=== PATIENT | female | born 1970 | race Caucasian/White ===

== ENCOUNTER 2021-06-03 06:51 | Day surgery (SDC) | payer BC ==
[2021-05-30 12:00] VITALS: BMI 39.8
[~2021-06-03 06:51] MED LIST: LACTATED RINGERS 1,000 ML IV SCH
--- NOTE | 2021-06-03 07:10 | P.GSHP ---
History of Present Illness H&P Date: 06/03/21 CHIEF COMPLAINT: GERD HISTORY OF PRESENT ILLNESS: The patient is a 50-year-old female who presents reports gastroesophageal reflux disease. Upper endoscopy was offered for further evaluation and management. PAST MEDICAL HISTORY: Please see list. PAST SURGICAL HISTORY: Please see list. MEDICATIONS: Please see list. ALLERGIES: Please see list. SOCIAL HISTORY: No illicit drug use FAMILY HISTORY: No reports of Crohn disease or ulcerative colitis. REVIEW OF ORGAN SYSTEMS: CONSTITUTIONAL: No reports of fevers or chills. GI: Denies any blood in stools or constipation. PHYSICAL EXAM: VITAL SIGNS: Stable GENERAL: Well-developed and pleasant in no acute distress. HEENT: No scleral icterus. Extraocular movements grossly intact. Moist buccal mucosa. NECK: Supple without lymphadenopathy. CHEST: Unlabored respirations. Equal bilateral excursions. CARDIOVASCULAR: Regular rate and rhythm. Distal 2+ pulses. ABDOMEN: Soft, nondistended. MUSCULOSKELETAL: No clubbing, cyanosis, or edema. ASSESSMENT: 1. Gastroesophageal reflux disease PLAN: 1. Recommend proceeding with an upper endoscopy Past Medical History Past Medical History: Thyroid Disorder Additional Past Medical History / Comment(s): hx migraines, "pre cancer cells on cervix" History of Any Multi-Drug Resistant Organisms: None Reported Past Surgical History: Breast Surgery, Section, Cholecystectomy, Hysterectomy Additional Past Surgical History / Comment(s): left breast biopsy, colonoscopy Past Anesthesia/Blood Transfusion Reactions: No Reported Reaction Smoking Status: Never smoker - Past Family History Mother Family Medical History: No Reported History Medications and Allergies Home Medications Medication Instructions Recorded Confirmed Type Ergocalciferol [Vitamin D2 (1250 1,250 mcg PO SUTH 03/13/21 05/30/21 History Mcg = 05805 Iu)] Fluticasone Propionate [Flovent 50 mcg INHALATION DAILY 03/13/21 05/30/21 History Diskus] Loratadine [Claritin] 10 mg PO DAILY 03/13/21 05/30/21 History valACYclovir HCL 1,000 mg PO DAILY PRN 03/13/21 05/30/21 History Vitamin A Tab 3,000 mg PO DAILY 05/30/21 05/30/21 History Allergies Allergy/AdvReac Type Severity Reaction Status Date / Time No Known Allergies Allergy Verified 05/30/21 11:49
[2021-06-03] MEDS ORDERED: LACTATED RINGERS 1,000 ML IV ONE (07:15)
[2021-06-03 07:16] VITALS: TEMP 97.8
[2021-06-03] MEDS ORDERED: PROPOFOL 10 MG/ML 20 ML VIAL IV ONE (07:44)
[2021-06-03] MEDS ORDERED: LIDOCAINE 1% INJ 10MG/ML (20 ML MDV) ONE (07:44)
--- NOTE | 2021-06-03 08:09 | P.PCN ---
Date of Procedure: 06/03/21 Description of Procedure: PREOPERATIVE DIAGNOSIS: Gastroesophageal reflux disease. Morbid obesity. POSTOPERATIVE DIAGNOSIS: Morbid obesity. Gastritis. Gastroesophageal reflux disease. OPERATION: Esophagogastroduodenoscopy with biopsies along antrum and duodenum SURGEON: Carol Rosado MD ANESTHESIA: MAC. INDICATIONS: The patient is a 50-year-old female who presents with a history of reflux disease. Benefits and risks of the procedure were described. Informed consent was obtained. DESCRIPTION: The patient was brought into the endoscopy suite and laid in the left lateral decubitus position. An Olympus gastroscope was passed along the posterior oropharynx down to the distal esophagus where the squamocolumnar junction was encountered at 36 cm from the incisors. The stomach was entered and with retained food. Additional findings are listed below. Biopsies with cold forceps were obtained of the antrum. The first through third portion of the duodenum was examined and cold biopsy forceps obtained. Retroflexion of the scope confirmed Hill grade 2 lower esophageal valve. The squamocolumnar junction demonstrated LA grade B erosive esophagitis. The stomach was desufflated. The patient tolerated the procedure well. FINDINGS: Squamocolumnar junction 36 cm from the incisors. Diaphragmatic hiatus at 36 cm. Hill grade 2 lower esophageal valve. LA grade B erosive esophagitis. Cold biopsy forceps obtained of the duodenum Chronic gastritis RECOMMENDATIONS: Upper endoscopy as needed. Plan - Discharge Summary New Discharge Prescriptions: Continue Ergocalciferol [Vitamin D2 (1250 Mcg = 21641 Iu)] 1,250 mcg PO SUTH Loratadine [Claritin] 10 mg PO DAILY valACYclovir HCL 1,000 mg PO DAILY PRN PRN Reason: Rash Vitamin A Tab 3,000 mg PO DAILY Fluticasone Propionate [Flovent Diskus] 50 mcg INHALATION DAILY Discharge Medication List Ergocalciferol [Vitamin D2 (1250 Mcg = 80794 Iu)] 1,250 mcg PO SUTH 03/13/21 [History] Fluticasone Propionate [Flovent Diskus] 50 mcg INHALATION DAILY 03/13/21 [History] Loratadine [Claritin] 10 mg PO DAILY 03/13/21 [History] valACYclovir HCL 1,000 mg PO DAILY PRN 03/13/21 [History] Vitamin A Tab 3,000 mg PO DAILY 05/30/21 [History] Follow up Appointment(s)/Referral(s): [facility] [NON-STAFF] - 06/19/21 Patient Instructions/Handouts: Gastroesophageal Reflux Disease (DC) Discharge Disposition: HOME SELF-CARE
[2021-06-03 08:29] VITALS: BP 134/93; PULSE 71; RESP 18
== END 2021-06-03 08:46 | disposition home or self-care (01) ==
LOC: ORWHC2ENDO 06:51
PROVIDERS: ATTEND Surgery Plastic and Reconstructive Surgery
DX: K29.50 Unspecified chronic gastritis without bleeding (principal); K21.9 Gastro-esophageal reflux disease without esophagitis; K22.10 Ulcer of esophagus without bleeding; E66.01 Morbid (severe) obesity due to excess calories; Z68.41 Body mass index [BMI] 40.0-44.9, adult; E07.9 Disorder of thyroid, unspecified; G43.909 Migraine, unspecified, not intractable, without status migrainosus; Z98.891 History of uterine scar from previous surgery; Z90.49 Acquired absence of other specified parts of digestive tract; Z90.710 Acquired absence of both cervix and uterus; Z98.890 Other specified postprocedural states; Z79.899 Other long term (current) drug therapy
CPT/HCPCS: 88305; 43239; J2001; J2704

== ENCOUNTER → 2021-07-15 | Outpatient (CLI) | payer BC ==
[2021-07-15 12:54] VITALS: BMI 40.0
== END ==
LOC: BARWHC3 08:30
PROVIDERS: ATTEND Surgery Plastic and Reconstructive Surgery
DX: E66.01 Morbid (severe) obesity due to excess calories (principal); Z71.3 Dietary counseling and surveillance; Z68.41 Body mass index [BMI] 40.0-44.9, adult
CPT/HCPCS: 97804

== ENCOUNTER → 2021-11-22 | Outpatient (CLI) | payer BC ==
[2021-11-22 08:16] LABS: Partial Thromboplastin Time 24.9 sec (22.0-30.0); Prothrombin Time 10.5 sec (9.0-12.0)
[2021-11-22 11:19] LABS: % Iron Saturation 10.54 (12.00-45.00); ALT 44 U/L (8-44); AST 31 U/L (13-35); African American GFR (CKD) 118.4 (60.0-200.0); Albumin 4.6 g/dL (3.8-4.9); Albumin/Globulin Ratio 1.55 (1.60-3.17); Alkaline Phosphatase 129 U/L (41-126); BUN/Creat Ratio 26.55 Ratio (12.00-20.00); Blood Urea Nitrogen 17.6 mg/dL (9.0-27.0); Calcium 9.7 mg/dL (8.7-10.3); Carbon Dioxide 20.7 mmol/L (20.0-27.5); Chloride 100 mmol/L (96-109); Glucose 88 mg/dL (70-110); Iron 43 ug/dL (50-170); Magnesium 2.4 mg/dL (1.5-2.4); Non-African American GFR(CKD) 102.1 (60.0-200.0); Phosphorus 3.2 mg/dL (2.4-5.1); Potassium 3.9 mmol/L (3.5-5.5); Sodium 135 mmol/L (135-145); Total Iron Binding Capacity 409 ug/dL (228-460); Total Protein 7.6 g/dL (6.2-8.2)
[2021-11-22 11:37] LABS: HCT 43.3 % (37.2-46.3); HGB 14.3 g/dL (12.0-15.0); MCH 28.3 pg (27.0-32.0); MCV 85.7 fL (80.0-97.0); Mean Platelet Volume 11.2 fL (9.5-12.2); NRBC Per 100 WBC 0 /100 WBCS (0.0-0.0); Platelet Count 346 X 10*3/uL (140-440); RBC 5.05 X 10*6/uL (4.10-5.20); RDW 12.8 % (11.5-14.5)
[2021-11-22 12:16] LABS: Chol/HDL Ratio 6.41 Ratio; LDL Cholesterol,Calculated 163.7 mg/dL (0.0-131.0); Prealbumin 21.5 mg/dL (18.0-42.0)
== END | disposition home or self-care (01) ==
LOC: LABWHC1 07:22
PROVIDERS: ATTEND Surgery Plastic and Reconstructive Surgery
DX: D50.8 Other iron deficiency anemias (principal); K91.2 Postsurgical malabsorption, not elsewhere classified; E44.0 Moderate protein-calorie malnutrition; E66.01 Morbid (severe) obesity due to excess calories; E45 Retarded development following protein-calorie malnutrition; K74.1 Hepatic sclerosis; N19 Unspecified kidney failure
CPT/HCPCS: 36415; 80053; 80061; 82306; 82525; 82607; 82728; 82746; 83036; 83540; 83550; 83735; 83970; 84100; 84134; 84255; 84425; 84443; 84590; 84630; 85027; 85610; 85730

== ENCOUNTER 2021-12-09 08:00 | Inpatient (IN) | payer BC ==
[~2021-12-09 08:00] MED LIST changes: +CHLORHEXIDINE GLUCONATE 15 ML CUP MUCOUS MEM PRN; +ENOXAPARIN 40 MG/0.4 ML SYRINGE SQ PRN; -LACTATED RINGERS 1,000 ML IV SCH; +PANTOPRAZOLE 40 MG/10 ML VIAL IVP PRN
[2021-12-09] MEDS ORDERED: SCOPOLAMINE 1 MG/72 HR PATCH TRANSDERM STA (08:23)
[2021-12-09] MEDS ORDERED: ACETAMINOPHEN TAB 500 MG TAB PO PRN (08:23)
[2021-12-09] MEDS ORDERED: GABAPENTIN 300 MG CAP PO PRN (08:23)
--- NOTE | 2021-12-09 08:37 | P.GSHP ---
History of Present Illness H&P Date: 12/09/21 CHIEF COMPLAINT: Morbid obesity HISTORY OF PRESENT ILLNESS: Mamie Kebede is a 51-year-old female who comes with lifelong morbid obesity. As a result of her morbid obesity, she has developed osteoarthritis of the knees, lower back and hips. She is looking into the sleeve gastrectomy. At height of 5 feet 3 inches, her ideal body weight is 140 pounds. Her highest weight is 235 pounds, body mass index of 41.7. She comes in 232 pounds. Her body mass index is 41.3. She is 91 pounds overweight. PAST MEDICAL HISTORY: 1. Morbid obesity due to excess calories 2. Body mass index of 41.7, initial 3. Osteoarthritis of the knees. 4. Osteoarthritis of the lower back. 5. Thyroid disorder 6. Parathyroid adenoma 7. Osteoarthritis of the hips, bilateral 8. Sleep apnea PAST SURGICAL HISTORY: 1. Breast biopsy 2. 3. Cholecystectomy 4. Hysterectomy 5. Colonoscopy 6. Esophagogastroduodenoscopy HOME MEDICATIONS: Home Medications Medication Instructions Recorded Confirmed Ergocalciferol [Vitamin D2 (1250 1,250 mcg PO SUTH 03/13/21 06/19/21 Mcg = 63456 Iu)] Fluticasone Propionate [Flovent 50 mcg INHALATION DAILY 03/13/21 06/19/21 Diskus] Loratadine [Claritin] 10 mg PO DAILY 03/13/21 06/19/21 valACYclovir HCL 1,000 mg PO DAILY PRN 03/13/21 06/19/21 Vitamin A Tab 3,000 mg PO DAILY 05/30/21 06/19/21 ALLERGIES: Allergies Allergy/AdvReac Type Severity Reaction Status Date / Time No Known Allergies Allergy Verified 06/19/21 15:52 SOCIAL HISTORY: Past tobacco use. FAMILY HISTORY: No family history of ulcerative colitis disease or Crohn's disease. Family history of morbid obesity. No lupus in the family. No reports of stomach or esophageal cancer. Her father had pancreatic cancer. REVIEW OF ORGAN SYSTEMS: CONSTITUTIONAL: At height of 5 feet 3 inches, her ideal body weight is 140 pounds. Her highest weight is 235 pounds, body mass index of 41.7. She comes in 225 pounds. Her body mass index is 40.0. She is 85 pounds overweight. HEENT: Denies any active troubles with vision or hearing. ENDOCRINE: Denies diabetes. No hypothyroidism. CARDIOVASCULAR: Denies past reports of palpitations or heart attacks or chest pain. RESPIRATORY: Has seasonal allergies. She has somnolence daytime. She has not had a sleep study. GASTROINTESTINAL: Denies any bright red blood per rectum. No diarrhea. No constipation. GENITOURINARY: Denies bladder urgency. No recent blood in urine MUSCULOSKELETAL: Has lower back pain and joint pain. Has osteoarthritis of the knees. NEURO: No headaches. No seizure disorders. PSYCH: Denies depression. No suicidal ideation. RHEUMATOLOGIC: No lupus. No rheumatoid arthritis. HEMATOLOGIC: Denies any abnormal bleeding or bruising. SKIN: No rash. No skin cancer. PHYSICAL EXAM: VITAL SIGNS: Height 5 foot 3 inches, weight 232 pounds. BMI 41.3 GENERAL: Well-developed in no acute distress. HEENT: No scleral icterus. Extraocular movements grossly intact. Hears conversational speech. No nasal drainage. NECK: Supple without lymphadenopathy. CHEST: Nonlabored respirations with equal bilateral excursions. CARDIOVASCULAR: Regular rate and regular rhythm. Distal 2+ pulses. ABDOMEN: Obese, soft, nontender, nondistended. MUSCULOSKELETAL: No clubbing, cyanosis. NEURO: No focal or lateralizing signs. Cranial nerves 2 through 12 grossly within normal limits. PSYCH: Appropriate affect. Alert and oriented to person, place and time. SKIN: Good skin turgor. Well perfused. ASSESSMENT: 1. Morbid obesity due to excess calories 2. Body mass index of 41.7, initial 3. Osteoarthritis of the knees. 4. Osteoarthritis of the lower back. 5. Thyroid disorder 6. Parathyroid adenoma 7. Osteoarthritis of the hips, bilateral 8. Sleep apnea PLAN: 1. Bariatric options between a sleeve, band and a Melchor-en-Y gastric bypass were reviewed in detail. The patient elected for a sleeve gastrectomy. Robotic assisted approach described. 2. The [place] [facility] Data was also reviewed with benefits and risks as described. 3. An 8 page second-generation bariatric consent form was reviewed in detail including potential of bleeding, infection, leaks, adequate weight loss, nutritional deficiencies which the patient demonstrated understanding of the ri sks. 4. A 2 week high-protein low caloric 800 kcal diet described to address hepatomegaly. 5. Preoperative labs including complete metabolic panel and CBC with type and screen recommended. 6. DVT prophylaxis per [place] [facility]ariat[facility] surgery collaborative. 7. Antibiotic prophylaxis. 8. Inpatient hospitalization anticipated for more than 2 nights. 9. All questions and concerns were addressed with the patient. 10. Overall, patient has expressed understanding of bariatric care including postoperative diet and commitment of lifestyle. Patient should benefit from surgical intervention for correction of her morbid obesity. 11. She is interested to pre-existing history of parathyroid adenoma Past Medical History Past Medical History: Thyroid Disorder Additional Past Medical History / Comment(s): hx migraines, "pre cancer cells on cervix," hx non-functioning thyroid gland History of Any Multi-Drug Resistant Organisms: None Reported Past Surgical History: Breast Surgery, Section, Cholecystectomy, Hysterectomy Additional Past Surgical History / Comment(s): left breast biopsy, colonoscopy, one parathyroid gland removed, Colonoscopy, EGD Past Anesthesia/Blood Transfusion Reactions: No Reported Reaction Smoking Status: Never smoker - Past Family History Mother Family Medical History: No Reported History Father Family Medical History: Cancer Additional Family Medical History / Comment(s): pancreatic and skin cancer Medications and Allergies Home Medications Medication Instructions Recorded Confirmed Type Ergocalciferol [Vitamin D2 (1250 1,250 mcg PO SUTH 03/13/21 12/05/21 History Mcg = 66282 Iu)] Loratadine [Claritin] 10 mg PO DAILY 03/13/21 12/05/21 History Vitamin A Tab 3,000 mg PO DAILY 05/30/21 12/05/21 History Calcium Carbonate [Calcium] 600 mg PO DAILY 11/20/21 12/05/21 History Fluticasone Propionate 2 spray EA NOSTRIL DAILY 12/05/21 12/05/21 History Ibuprofen [Motrin Ib] 200 mg PO Q8H PRN 12/05/21 12/05/21 History Multivitamin [Multivitamins Adult 2 each PO DAILY 12/05/21 12/05/21 History Gummies] Allergies Allergy/AdvReac Type Severity Reaction Status Date / Time No Known Allergies Allergy Verified 12/05/21 13:29
[2021-12-09] MEDS ORDERED: LACTATED RINGERS 1,000 ML IV ONE ×3 (10:12→14:45)
--- NOTE | 2021-12-09 10:18 | P.HPADDEND ---
H&P Addendum H&P Addendum Date: 12/09/21 Repeat WBC for persistent leukocytosis. Additionally, patient lost 13 pounds in 2 weeks. Robotic sleeve gastrectomy and postoperative recovery described.
[2021-12-09] MEDS ORDERED: ONDANSETRON 4 MG/2 ML VIAL ONE (10:20)
[2021-12-09] MEDS ORDERED: ONDANSETRON 4 MG/2 ML VIAL IVP ONE ×2 (10:24→14:38)
[2021-12-09] MEDS ORDERED: DEXAMETHASONE SOD PHOSPHATE 4 MG/ML 1 ML VIAL IVP ONE (10:25)
[2021-12-09 10:39] LABS: Basophils # (A) 0.1 k/uL (0-0.2); Basophils % (A) 2 %; Eosinophils # (A) 0.1 k/uL (0-0.7); Eosinophils % (A) 2 %; HCT 49.6 % (34.0-46.0); HGB 16.2 gm/dL (11.4-16.0); Lymphocytes # (A) 2.1 k/uL (1.0-4.8); Lymphocytes % (A) 22 %; MCH 28.3 pg (25.0-35.0); MCHC 32.7 g/dL (31.0-37.0); MCV 86.6 fL (80.0-100.0); Mean Platelet Volume 8.7; Monocytes # (A) 0.6 k/uL (0-1.0); Monocytes % (A) 6 %; Neutrophils # (A) 6.5 k/uL (1.3-7.7); Neutrophils % (A) 68 %; Platelet Count 365 k/uL (150-450); RBC 5.73 m/uL (3.80-5.40); RDW 12.6 % (11.5-15.5); WBC 9.6 k/uL (3.8-10.6)
[2021-12-09 10:56] LABS: ALT 68 U/L (4-34); AST 40 U/L (14-36); African American GFR (CKD) >90 (>60 ml/min/1.73 sqM); Albumin 4.9 g/dL (3.5-5.0); Alkaline Phosphatase 138 U/L (38-126); Anion Gap 12 mmol/L; Blood Urea Nitrogen 9 mg/dL (7-17); Calcium 9.7 mg/dL (8.4-10.2); Carbon Dioxide 23 mmol/L (22-30); Chloride 106 mmol/L (98-107); Glucose 89 mg/dL (74-99); Non-African American GFR(CKD) >90 (>60 ml/min/1.73 sqM); Potassium 4.2 mmol/L (3.5-5.1); Sodium 141 mmol/L (137-145); Total Bilirubin 0.7 mg/dL (0.2-1.3); Total Protein 8.5 g/dL (6.3-8.2)
[2021-12-09] MEDS ORDERED: MIDAZOLAM 2 MG/2 ML VIAL ONE (11:01)
[2021-12-09] MEDS ORDERED: ROCURONIUM 10 MG/ML (5 ML VIAL) IV ONE (11:01)
[2021-12-09] MEDS ORDERED: HYDROmorphone (PF) 1 MG/ML ONE (11:01)
[2021-12-09] MEDS ORDERED: GLYCOPYRROLATE 0.2 MG/ML 2 ML VIAL ONE (11:01)
[2021-12-09] MEDS ORDERED: LIDOCAINE 2% INJ 20 MG/ML (2 ML VIAL) ONE (11:01)
[2021-12-09] MEDS ORDERED: SUCCINYLCHOLINE CHLORIDE 100 MG/5 ML SYR IV ONE (11:01)
[2021-12-09] MEDS ORDERED: KETOROLAC 15 MG/ML 1 ML VIAL ONE (11:01)
[2021-12-09] MEDS ORDERED: fentaNYL (PF) 50 MCG/ML 2 ML AMP ONE (11:01)
[2021-12-09] MEDS ORDERED: PROPOFOL 10 MG/ML 20 ML VIAL IV ONE (11:01)
[2021-12-09] MEDS ORDERED: NEOSTIGMINE 1 MG/ML 10 ML VIAL ONE (11:01)
[2021-12-09] MEDS ORDERED: BUPIVACAIN-EPI 0.25%-1:200,000 30 ML VIAL SQ ONE ×2 (11:30→11:42)
[2021-12-09] MEDS ORDERED: NALOXONE 0.4 MG/ML 1 ML VIAL IV PRN (13:03)
[2021-12-09] MEDS ORDERED: diphenhydrAMINE 50 MG/ML 1 ML VIAL IVP PRN (13:03)
--- NOTE | 2021-12-09 13:11 | P.OP ---
Date of Procedure: 12/09/21 Description of Procedure: SURGEON: LANA GOEL MD PREOPERATIVE DIAGNOSES: 1. Morbid obesity due to excess calories 2. Body mass index of 41.7, initial 3. Osteoarthritis of the knees. 4. Osteoarthritis of the lower back. 5. Thyroid disorder 6. Parathyroid adenoma 7. Osteoarthritis of the hips, bilateral 8. Sleep apnea POSTOPERATIVE DIAGNOSES: 1. Morbid obesity due to excess calories 2. Body mass index of 41.7, initial 3. Osteoarthritis of the knees. 4. Osteoarthritis of the lower back. 5. Thyroid disorder 6. Parathyroid adenoma 7. Osteoarthritis of the hips, bilateral 8. Sleep apnea 9. Hepatomegaly OPERATION: 1. Robotic assisted daVinci Xi laparoscopic sleeve gastrectomy with 40-Lebanese bougie, multiport. 2. Intraoperative esophagogastroduodenoscopy. ANESTHESIA: Gen. local anesthetic ESTIMATED BLOOD LOSS: 5 mL SPECIMENS REMOVED: Sleeve gastrectomy COMPLICATIONS: None. FINDINGS: 1. Negative intraoperative esophagogastrojejunoscopy leak test. 2. Mild hepatomegaly and no large hiatus hernia. 3. Total of 6 staplers used including 5 - 60 mm blue robot krystyna and 1 - 60 mm green robot loads used to create the gastric sleeve. 4. Sleeve gastrectomy, 28 x 4 cm INDICATIONS: Mamie Kebede is a 51-year-old female who comes with lifelong morbid obesity. As a result of her morbid obesity, she has developed osteoarthritis of the knees, lower back and hips. She is looking into the sleeve gastrectomy. At height of 5 feet 3 inches, her ideal body weight is 140 pounds. Her highest weight is 235 pounds, body mass index of 41.7. She comes in 220 pounds. Her body mass index is 41.3. She is 91 pounds overweight. All surgical options for morbid obesity had been described using the [place] [facility]ariat[facility] collaborative comorbidity resolution including complication risk score. A second-generation bariatric consent form was described in detail including the possibility of protein malnutrition, leaks, gastric stricture, venous thrombosis, gastroesophageal reflux disease, need for further surgery for which she demonstrated understanding. Benefits and risks of the procedure were described at length. Informed consent was obtained. DESCRIPTION: The patient was brought into the operating room theater. Preoperatively she had received Lovenox subcutaneously for DVT prophylaxis. Additionally she had Peridex oral solution as an oral decontaminant. After general induction, the abdomen was prepped and draped in standard sterile fashion. An Ioban draping was placed along the abdomen. A robotic da Rizwana Xi system was prepped and primed. At 13 cm from the xiphoid, proposed port sites were marked with indelible marker along the anterior axillary line bilaterally, mid axillary line bilaterally with each ports were marked 10 to 15 cm from each other. The robotic stapler port was marked for the right midclavicular line. A 5 mm 0 degrees laparoscopic trocar entry was performed along the left upper quadrant. The abdomen was insufflated to 15 mmHg pressure was tolerated well. Diagnostic laparoscopy demonstrated no injury to bowel, viscera, or mesentery. No evidence of large hiatus hernia was identified. The liver edge was sharp consistent with 2 week low-carb high-protein diet. A 8 mm port was placed along the left upper abdominal wall after exchanging the 5 mm port. A separate 8 mm port was placed along the left lateral abdominal wall. Please note that the ports were placed at least 20 cm away from the target anatomy. Care was taken to check each robotic arms were safely away from collision with the bed or the patient. At the epigastrium, a medium sized Mary liver retractor was placed under direct visualization with the Iron Diesel Engine Fitter placed under the right shoulder of the patient. Next, 12-mm robot stapler port was placed along the right upper quadrant. The camera 8-mm port was maintained along the epigastrium. The patient was repositioned in reverse Trendelenburg position at 21-degrees after lowering the bed. The robot was docked along the left side of the patient. Using a grasper for arm 4, a vessel sealer for arm 3, including grasper for arm 1, the robotic system was docked and primed as described. Instruments were interchanged by the project assistant for stapler loads. The camera was placed at 30- degrees down. I had sat at the console. The pylorus was identified and 6 cm proximally along the greater curvature of the stomach, the short gastrics were mobilized upwards to the angle of His using a vessel sealer. Hemostasis was excellent during this portion of the procedure. Next, the upper pole of the stomach was adherent to the left antony, which was gently dissected free using atraumatic grasper. I went to the head of the bed and placed 40-Lebanese blunt bougie into the stomach. The bougie was readjusted by the nurse it technical specialist. Robotic staplergreen 60 mm x 1 loads followed by blue load 60 mm 5 were used to create the sleeve. Initial firing was across the antrum of the stomach towards the angle of His. The staple line was linear without corkscrewing. The space from the angularis incisura of the sleeve was approximately 4 cm. I then went to the head of the bed to perform the intraoperative esophagogastroduodenoscopy leak test. The bougie was withdrawn. The upper pole of the stomach was bathed using normal saline solution. The scope was withdrawn with careful inspection along the staple line for which no leaks were found along the entire length. Features of gastritis was identified. Additionally,the sleeve was completely hemostatic without any encroachment along the angularis incisura. Its topology was a soft "J". No stricture was encountered upon placement of the scope. The GI tract was desufflated. The patient tolerated this portion of the procedure well. The scope was completely withdrawn. The robot was undocked. I then rescrubbed into case, whereby the irrigation fluid was aspirated from the abdominal cavity. Tisseel fibrin sealant was placed along the entire staple length. Once dried the Mary liver retractor was removed. Attention was now brought to removal of the specimen. The distal end of the sleeve gastrectomy specimen was brought out through the 12 mm port at the left upper quadrant. The specimen was gently removed en total. No contamination had occurred during this process. All instruments and pneumoperitoneum including irrigation fluid was removed from the abdominal cavity. The 12 mm port site was closed using 0-Vicryl and Parviz Moreland and irrigated with diluted hydrogen peroxide. The final incisions were closed using subcuticular interrupted suture of 4-0 Monocryl. Exofin was applied to the skin once the skin had been cleansed. OptiFoam dressing was placed along the stomach extraction site. The sleeve specimen was measured and checked also for leaks which none were found. At the end of the procedure, needle, sponge, and instrument count was verified correct by the surgical supervisor. The patient was taken to the postanesthesia care unit in stable condition. She had tolerated the procedure well. Intraoperative films and findings were reviewed with the patient's family.
[2021-12-09] MEDS ORDERED: HYDROmorphone 0.5 MG/0.5 ML SYRINGE IVP ONE ×3 (13:40→14:45)
[2021-12-09] MEDS: ALBUTEROL NEBULIZED 2.5 MG/3 ML INHALATION SCH ×2 (15:28→22:08)
[2021-12-09] MEDS ORDERED: SODIUM CHLORIDE 0.9% 2,000 ML IV ONE (16:00)
[2021-12-09] MEDS: HYDROmorphone 1 MG/ML 1 ML SYRINGE IVP PRN (17:25)
[2021-12-09] MEDS: ONDANSETRON 4 MG/2 ML VIAL IVP SCH (17:26)
[2021-12-09] MEDS: DEXAMETHASONE SOD PHOSPHATE 4 MG/ML 1 ML VIAL IVP SCH (17:26)
[2021-12-09] MEDS: SIMETHICONE 40 MG/0.6 ML DROPS 2,000 MG/30 ML BOTTLE PO SCH (17:27)
[2021-12-09] MEDS: HYOSCYAMINE ORAL DROPS 1.875 MG/15 ML BOTTLE PO SCH (17:28)
[2021-12-09] MEDS ORDERED: DEXAMETHASONE SOD PHOSPHATE 10 MG/ML 1 ML VIAL IVP ONE (19:00)
[2021-12-09] MEDS: ACETAMINOPHEN IV (For NPO) 1,000 MG in EMPTY BAG 1 BAG IVPB SCH (19:34)
[2021-12-09] MEDS: 0.9% NACL WITH KCL 20 MEQ/L 1,000 ML IV SCH ×2 (19:38→21:01)
[2021-12-09] MEDS: PANTOPRAZOLE 40 MG/10 ML VIAL IV SCH (21:01)
[2021-12-10] MEDS: HYOSCYAMINE ORAL DROPS 1.875 MG/15 ML BOTTLE PO SCH ×3 (00:41→11:36)
[2021-12-10] MEDS: ACETAMINOPHEN IV (For NPO) 1,000 MG in EMPTY BAG 1 BAG IVPB SCH ×3 (00:42→11:36)
[2021-12-10] MEDS: SIMETHICONE 40 MG/0.6 ML DROPS 2,000 MG/30 ML BOTTLE PO SCH ×3 (00:42→11:37)
[2021-12-10] MEDS: DEXAMETHASONE SOD PHOSPHATE 4 MG/ML 1 ML VIAL IVP SCH ×3 (00:43→11:36)
[2021-12-10] MEDS: ONDANSETRON 4 MG/2 ML VIAL IVP SCH ×3 (00:43→11:35)
[2021-12-10] MEDS: 0.9% NACL WITH KCL 20 MEQ/L 1,000 ML IV SCH (05:13)
[2021-12-10] MEDS: PANTOPRAZOLE 40 MG/10 ML VIAL IV SCH (07:57)
[2021-12-10] MEDS ORDERED: 0.9% NACL WITH KCL 20 MEQ/L 1,000 ML IV SCH (08:00)
[2021-12-10] MEDS: ALBUTEROL NEBULIZED 2.5 MG/3 ML INHALATION SCH ×3 (08:33→15:34)
[2021-12-10] MEDS ORDERED: FLUTICASONE 50MCG/SPRAY NASAL 16GM EA NOSTRIL SCH (09:00)
[2021-12-10] MEDS ORDERED: LORATADINE 10 MG TAB PO SCH (09:00)
[2021-12-10] MEDS ORDERED: ENOXAPARIN 40 MG/0.4 ML SYRINGE SQ SCH (09:00)
--- NOTE | 2021-12-10 09:02 | P.PN ---
Subjective Progress Note Date: 12/10/21 Doing well. Objective - Vital Signs Vital signs: Vital Signs Temp 98.7 F 12/10/21 07:58 Pulse 85 12/10/21 08:42 Resp 16 12/10/21 07:58 BP 110/71 12/10/21 07:58 Pulse Ox 93 L 12/10/21 08:30 FiO2 Intake & Output 12/09/21 12/10/21 12/10/21 18:59 06:59 18:59 Intake Total 1600 Output Total 5 Balance 1595 Weight 100.6 kg Intake: IV 1600 Output: Estimated Blood Loss 5 Other: Voiding Method Toilet # Voids 5 - Labs CBC & Chem 7: 12/09/21 10:13 12/09/21 10:13 Labs: Abnormal Lab Results - Last 24 Hours (Table) 12/09/21 12/09/21 Range/Units 10:13 10:13 RBC 5.73 H (3.80-5.40) m/uL Hgb 16.2 H (11.4-16.0) gm/dL Hct 49.6 H (34.0-46.0) % AST 40 H (14-36) U/L ALT 68 H (4-34) U/L Alkaline Phosphatase 138 H (38-126) U/L Total Protein 8.5 H (6.3-8.2) g/dL
[2021-12-10 09:28] LABS: Basophils # (A) 0.01 X 10*3/uL (0.00-0.10); Basophils % (A) 0.1 %; Eosinophils # (A) 0 X 10*3/uL (0.04-0.35); Eosinophils % (A) 0 %; HCT 43.1 % (37.2-46.3); HGB 13.8 g/dL (12.0-15.0); Immature Grans, Automated 0.5 %; Lymphocytes # (A) 0.73 X 10*3/uL (0.90-5.00); Lymphocytes % (A) 6.9 %; MCH 27.9 pg (27.0-32.0); MCV 87.2 fL (80.0-97.0); Mean Platelet Volume 11.8 fL (9.5-12.2); Monocytes # (A) 0.19 X 10*3/uL (0.20-1.00); Monocytes % (A) 1.8 %; NRBC Per 100 WBC 0 /100 WBCS (0.0-0.0); Neutrophils # (A) 9.67 X 10*3/uL (1.80-7.70); Neutrophils % (A) 90.7 %; Platelet Count 322 X 10*3/uL (140-440); RBC 4.94 X 10*6/uL (4.10-5.20); RDW 12.9 % (11.5-14.5); WBC 10.65 X 10*3/uL (4.50-10.00)
[2021-12-10 09:42] LABS: African American GFR (CKD) 122.3 (60.0-200.0); Anion Gap 10.9 mmol/L (10.00-18.00); Blood Urea Nitrogen 6.3 mg/dL (9.0-27.0); Calcium 8.6 mg/dL (8.7-10.3); Carbon Dioxide 19.1 mmol/L (20.0-27.5); Non-African American GFR(CKD) 105.5 (60.0-200.0); Phosphorus 2.4 mg/dL (2.4-5.1); Potassium 4.6 mmol/L (3.5-5.5)
[2021-12-10 09:43] LABS: Magnesium 2.1 mg/dL (1.5-2.4)
--- NOTE | 2021-12-10 10:43 | FL ---
SINGLE CONTRAST UPPER GI EXAMINATION: CLINICAL HISTORY: 51-year-old female postop bariatric surgery TECHNIQUE: Single contrast exam performed with 50 ml Isovue 370 contrast. Total fluoroscopy time: 2 minutes 3 seconds. Total images: 40 FINDINGS: The patient swallowed or contrast without difficulty or delay. Esophageal peristalsis and motility a re within normal limits. There is prompt passage of contrast from the esophagus into the proximal sto mach. When enough contrast accumulates within the proximal stomach, there is passage across the gastr ic sleeve into the distal stomach and duodenum. There is no evidence of contrast extravasation to sug gest leak. No postsurgical free air. IMPRESSION: No evidence of leak or significant obstruction status post sleeve gastrectomy.
[2021-12-10] MEDS: HYDROmorphone 1 MG/ML 1 ML SYRINGE IVP PRN ×2 (10:53→15:57)
[2021-12-10 13:14] VITALS: BMI 39.2
--- NOTE | 2021-12-10 13:40 | P.DS ---
Providers Date of admission: 12/09/21 09:31 Expected date of discharge: 12/10/21 Attending physician: Carol Rosado Primary care physician: Pam Lee Hospital Course: Esophogram without leak or obstruction. Stable for discharge. Plan - Discharge Summary Discharge Rx Participant: Yes New Discharge Prescriptions: New Simethicone 40 mg/0.6 ml Drops [Mylicon Drops] 40 mg PO PCHS PRN #30 ml PRN Reason: Gas Omeprazole [PriLOSEC] 40 mg PO DAILY #30 cap Ondansetron Odt [Zofran Odt] 4 mg PO Q8HR PRN #9 tab PRN Reason: Nausea bisacodyL [Dulcolax] 5 mg PO DAILY PRN #10 tab PRN Reason: Constipation Acetaminophen Tab [Tylenol Tab] 1,000 mg PO Q6HR PRN #30 tablet PRN Reason: Pain Continue Loratadine [Claritin] 10 mg PO DAILY Discontinued Ergocalciferol [Vitamin D2 (1250 Mcg = 26270 Iu)] 1,250 mcg PO SUTH Vitamin A Tab 3,000 mg PO DAILY Calcium Carbonate [Calcium] 600 mg PO DAILY Multivitamin [Multivitamins Adult Gummies] 2 each PO DAILY Ibuprofen [Motrin Ib] 200 mg PO Q8H PRN PRN Reason: Pain Fluticasone Propionate 2 spray EA NOSTRIL DAILY Discharge Medication List Loratadine [Claritin] 10 mg PO DAILY 03/13/21 [History] Acetaminophen Tab [Tylenol Tab] 1,000 mg PO Q6HR PRN #30 tablet 12/09/21 [Rx] Omeprazole [PriLOSEC] 40 mg PO DAILY #30 cap 12/09/21 [Rx] Ondansetron Odt [Zofran Odt] 4 mg PO Q8HR PRN #9 tab 12/09/21 [Rx] Simethicone 40 mg/0.6 ml Drops [Mylicon Drops] 40 mg PO PCHS PRN #30 ml 12/09/21 [Rx] bisacodyL [Dulcolax] 5 mg PO DAILY PRN #10 tab 12/09/21 [Rx] Follow up [facility]ment(s[facility] [place] [facility]13[facility]21 9:00 am Patient Instructions/Handouts: *Surgery [facility] - Managing Your Pain After Surgery Without Opioids, Nutrition after Bariatric Surgery (GEN), Laparoscopic Sleeve Gastrectomy (DC), Deep Vein Thrombosis Prevention (DC) Activity/Diet/Wound Care/Special Instructions: Liquid diet only for 2 weeks until December 23 No lifting over 4 pounds in 4 weeks, January 08October Shower. No soaking in bath tubs 2 weeks until December 23 Please notify your surgeon if you develop nausea and vomiting including new onset of abdominal pain. Continue to use incentive spirometry to prevent pneumonias. Please continue to ambulate at home to prevent blood clots in legs. Follow-up at the bariatric center. October shower. Dressings to be discontinued by surgeon in the office. Drink 64 oz of fluid daily. Start protein shakes on . Notify bariatric center for temp over 101.0, increased pain, drainage from incisions. No straws or carbonated beverages. Liquid diet only. Sugar content should be less than 6 g to avoid dumping syndrome. Take MOM for constipation. CRUSH, OPEN, OR CUT TABLETS LARGER THAN A SIZE OF A TIC TAC Discharge Disposition: HOME SELF-CARE
[2021-12-10 14:06] VITALS: BP 98/59; RESP 17; TEMP 98
[2021-12-10 15:46] VITALS: PULSE 80
== END 2021-12-10 17:19 | disposition home or self-care (01) | DRG 621 ==
LOC: 2ORMAIN 09:31 → 4SSUR 14:58
PROVIDERS: ADMIT Surgery Plastic and Reconstructive Surgery; ATTEND Surgery Plastic and Reconstructive Surgery
PROC: 0DB64Z3 Excision of Stomach, Percutaneous Endoscopic Approach, Vertical (ICD-10-PCS; principal; 2021-12-09 11:00)
PROC: 0DJ08ZZ Inspection of Upper Intestinal Tract, Via Natural or Artificial Opening Endoscopic (ICD-10-PCS; principal; 2021-12-09 11:00)
PROC: 8E0W4CZ Robotic Assisted Procedure of Trunk Region, Percutaneous Endoscopic Approach (ICD-10-PCS; principal; 2021-12-09 11:00)
DX: E66.01 Morbid (severe) obesity due to excess calories (principal); G47.30 Sleep apnea, unspecified; K29.70 Gastritis, unspecified, without bleeding; M16.0 Bilateral primary osteoarthritis of hip; M17.0 Bilateral primary osteoarthritis of knee; M47.9 Spondylosis, unspecified; Z68.41 Body mass index [BMI] 40.0-44.9, adult; R16.0 Hepatomegaly, not elsewhere classified; E07.9 Disorder of thyroid, unspecified; D35.1 Benign neoplasm of parathyroid gland; E89.2 Postprocedural hypoparathyroidism; Z80.0 Family history of malignant neoplasm of digestive organs; Z80.8 Family history of malignant neoplasm of other organs or systems; Z87.891 Personal history of nicotine dependence; Z90.710 Acquired absence of both cervix and uterus; Z98.890 Other specified postprocedural states; Z90.49 Acquired absence of other specified parts of digestive tract; D72.829 Elevated white blood cell count, unspecified; Z28.310 Unvaccinated for COVID-19; Z28.82 Immunization not carried out because of caregiver refusal; Z79.899 Other long term (current) drug therapy
CPT/HCPCS: 74240; 80051; 80053; 82310; 82565; 83735; 84100; 84520; 85025; 86850; 86900; 86901; 88307; 94640; 94760; 94762

== ENCOUNTER → 2022-06-25 | Outpatient (CLI) | payer BC ==
[2022-06-25 15:10] VITALS: BP 131/81; PULSE 74; RESP 16; TEMP 98.7; BMI 35.4
[2022-06-25 15:25] LABS: INR 0.9 (<1.2); Partial Thromboplastin Time 24.6 sec (22.0-30.0)
--- NOTE | 2022-06-25 16:34 | P.BASOAP ---
Subjective Progress Note Date: 06/25/22 Patient is status post sleeve gastrectomy. Weight loss patient accepts 25 pound weight loss in 6 months. Patient confirms eating an adequate amount of protein was to 50 g daily. She now has thania system. She is increased protein intake to 60 g recently. Otherwise, no abdominal pain. No reflux disease. She has attained her goals of decreased blood pressure including joint pain. Recommend follow-up in 3 months. Increase protein intake over 60 g advised for optimal weight loss. Patient's alvaro 180 pounds upon next visit. Objective - Vital Signs Vital signs: Vital Signs Temp 98.7 F 06/25/22 15:03 Pulse 74 06/25/22 15:03 Resp 16 06/25/22 15:03 BP 131/81 06/25/22 15:03 Pulse Ox FiO2 Intake & Output 06/24/22 06/25/22 06/25/22 18:59 06:59 18:59 Weight 90.718 kg Assessment/Plan Plan: Date: 06/25/22 Initial Weight: 102.285 kg Initial BMI: 39.9 Current Weight: 90.718 kg Current BMI: 35.4 Type of Surgery: Total Volume in Band: Previous Volume: Volume Removed: Volume Added: Band Size:
[2022-06-25 22:48] LABS: HCT 47.3 % (37.2-46.3); HGB 15.3 g/dL (12.0-15.0); MCH 28.1 pg (27.0-32.0); MCHC 32.3 g/dL (32.0-37.0); MCV 86.8 fL (80.0-97.0); Mean Platelet Volume 11.9 fL (9.5-12.2); NRBC Per 100 WBC 0 /100 WBCS (0.0-0.0); Platelet Count 350 X 10*3/uL (140-440); RBC 5.45 X 10*6/uL (4.10-5.20); RDW 13.1 % (11.5-14.5); WBC 8.66 X 10*3/uL (4.50-10.00)
[2022-06-25 23:00] LABS: % Iron Saturation 14.58 (12.00-45.00); Iron 55 ug/dL (50-170); Magnesium 1.9 mg/dL (1.5-2.4); Phosphorus 3.9 mg/dL (2.4-5.1); Total Iron Binding Capacity 375 ug/dL (228-460)
[2022-06-25 23:01] LABS: ALT 18 U/L (8-44); AST 20 U/L (13-35); African American GFR (CKD) 118.4 (60.0-200.0); Albumin 4.4 g/dL (3.8-4.9); Albumin/Globulin Ratio 1.51 (1.60-3.17); Alkaline Phosphatase 111 U/L (41-126); BUN/Creat Ratio 18.43 Ratio (12.00-20.00); Blood Urea Nitrogen 12.2 mg/dL (9.0-27.0); Calcium 9.5 mg/dL (8.7-10.3); Carbon Dioxide 21.3 mmol/L (20.0-27.5); Chloride 104 mmol/L (96-109); Globulin 2.9 g/dL (1.6-3.3); Glucose 116 mg/dL (70-110); Non-African American GFR(CKD) 102.2 (60.0-200.0); Potassium 3.7 mmol/L (3.5-5.5); Sodium 138 mmol/L (135-145); Total Protein 7.3 g/dL (6.2-8.2)
[2022-06-26 00:22] LABS: Chol/HDL Ratio 5.68 Ratio; LDL Cholesterol,Calculated 102.2 mg/dL (0.0-131.0); Prealbumin 21.3 mg/dL (18.0-42.0)
== END ==
LOC: BARWHC3 14:32
PROVIDERS: ATTEND Surgery Plastic and Reconstructive Surgery
DX: E66.01 Morbid (severe) obesity due to excess calories (principal); D50.9 Iron deficiency anemia, unspecified; E44.0 Moderate protein-calorie malnutrition; E45 Retarded development following protein-calorie malnutrition; E55.9 Vitamin D deficiency, unspecified; K74.1 Hepatic sclerosis; N19 Unspecified kidney failure; T56.894A Toxic effect of other metals, undetermined, initial encounter; K50.90 Crohn's disease, unspecified, without complications; Z68.35 Body mass index [BMI] 35.0-35.9, adult; Z98.84 Bariatric surgery status
CPT/HCPCS: 80053; 80061; 82306; 82525; 82607; 82728; 82746; 83036; 83540; 83550; 83735; 83970; 84100; 84134; 84255; 84425; 84443; 84590; 84630; 85027; 85610; 85730; 97803; 99211

== ENCOUNTER 2022-09-05 05:37 | Emergency (ER) | payer OTHER, BC ==
[2022-09-05] MEDS ORDERED: ACETAMINOPHEN TAB 325 MG TAB PO STA (06:08)
[2022-09-05] MEDS ORDERED: KETOROLAC 15 MG/ML 1 ML VIAL IM STA (06:08)
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
[2022-09-05] MEDS ORDERED: HYDROcodone/APAP 5-325MG 1 EACH TAB PO STA (07:18)
[2022-09-05] MEDS ORDERED: traMADol 50 MG STARTER PACK 3 TAB BTL PO STA (07:21)
[2022-09-05] MEDS ORDERED: IBUPROFEN 600 MG STARTER PACK 4 TAB BTL PO STA (07:21)
[2022-09-05] MEDS ORDERED: ONDANSETRON 4 MG ODT STARTER PACK 2 TAB BTL PO STA (07:21)
[2022-09-05] MEDS ORDERED: LIDOCAINE 5% PATCH TOPICAL SCH (08:00)
[2022-09-05 08:01] VITALS: BP 120/78; PULSE 78; RESP 19; TEMP 98.4
== END 2022-09-05 08:01 | disposition home or self-care (01) ==
LOC: EC 05:37
DX: S22.089A Unspecified fracture of T11-T12 vertebra, initial encounter for closed fracture (principal); S00.03XA Contusion of scalp, initial encounter; S89.92XA Unspecified injury of left lower leg, initial encounter; R10.32 Left lower quadrant pain; V47.5XXA Car driver injured in collision with fixed or stationary object in traffic accident, initial encounter; Y92.410 Unspecified street and highway as the place of occurrence of the external cause
CPT/HCPCS: 73562; 72125; 70450; 71250; 74176; 99285; 96372; J1885; S0119

== ENCOUNTER → 2022-10-22 | Outpatient (CLI) | payer BC ==
[2022-10-22 16:47] VITALS: BP 123/87; PULSE 80; TEMP 99; BMI 35.2
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
== END ==
LOC: BARWHC3 15:54
PROVIDERS: ATTEND Surgery Plastic and Reconstructive Surgery
DX: E66.01 Morbid (severe) obesity due to excess calories (principal); Z68.35 Body mass index [BMI] 35.0-35.9, adult
CPT/HCPCS: 99211

== ENCOUNTER → 2022-11-26 | Outpatient (CLI) | payer BC ==
[2022-11-26 16:19] LABS: Partial Thromboplastin Time 24.1 sec (22.0-30.0); Prothrombin Time 10.1 sec (9.0-12.0)
[2022-11-26 20:06] LABS: HCT 49.2 % (37.2-46.3); HGB 15.9 g/dL (12.0-15.0); MCH 27.8 pg (27.0-32.0); MCHC 32.3 g/dL (32.0-37.0); NRBC Per 100 WBC 0 /100 WBCS (0.0-0.0); Platelet Count 328 X 10*3/uL (140-440); RBC 5.72 X 10*6/uL (4.10-5.20); WBC 10.11 X 10*3/uL (4.50-10.00)
[2022-11-26 21:20] LABS: Iron 85 ug/dL (50-170); Magnesium 2.3 mg/dL (1.5-2.4); Phosphorus 4.6 mg/dL (2.4-5.1)
[2022-11-26 21:26] LABS: % Iron Saturation 18.77 (12.00-45.00); ALT 29 U/L (8-44); AST 28 U/L (13-35); Albumin 4.8 g/dL (3.8-4.9); Albumin/Globulin Ratio 1.52 (1.60-3.17); Alkaline Phosphatase 134 U/L (41-126); BUN/Creat Ratio 21.53 Ratio (12.00-20.00); Blood Urea Nitrogen 14.1 mg/dL (9.0-27.0); Calcium 10.2 mg/dL (8.7-10.3); Carbon Dioxide 19.8 mmol/L (20.0-27.5); Chloride 102 mmol/L (96-109); Globulin 3.1 g/dL (1.6-3.3); Glucose 78 mg/dL (70-110); Non-African American GFR(CKD) 101.8 (60.0-200.0); Potassium 4.3 mmol/L (3.5-5.5); Sodium 139 mmol/L (135-145); Total Iron Binding Capacity 451 ug/dL (228-460); Total Protein 7.9 g/dL (6.2-8.2)
[2022-11-26 22:38] LABS: LDL Cholesterol,Calculated 173.1 mg/dL (0.0-131.0)
[2022-11-27 13:16] LABS: Zinc, Serum 88 ug/dL (60-130)
[2022-11-28 05:39] LABS: Vitamin A 65 ug/dL (38-106)
[2022-11-28 11:26] LABS: Vit B1(Thiamine) 92 ug/L (38-122)
== END | disposition home or self-care (01) ==
LOC: LABPAT 14:34
PROVIDERS: ATTEND Surgery Plastic and Reconstructive Surgery
DX: E66.01 Morbid (severe) obesity due to excess calories (principal); D50.8 Other iron deficiency anemias; K91.2 Postsurgical malabsorption, not elsewhere classified; E44.0 Moderate protein-calorie malnutrition; E44.1 Mild protein-calorie malnutrition; E45 Retarded development following protein-calorie malnutrition; E55.9 Vitamin D deficiency, unspecified; K74.1 Hepatic sclerosis; N19 Unspecified kidney failure; T56.894A Toxic effect of other metals, undetermined, initial encounter; K50.90 Crohn's disease, unspecified, without complications
CPT/HCPCS: 36415; 80053; 80061; 82306; 82525; 82607; 82728; 82746; 83036; 83540; 83550; 83735; 83970; 84100; 84134; 84255; 84425; 84443; 84590; 84630; 85027; 85610; 85730

== ENCOUNTER → 2022-11-26 | Outpatient (CLI) | payer BC ==
[2022-11-26 16:12] VITALS: BP 128/85; PULSE 73; TEMP 98.2; BMI 36.5
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
== END ==
LOC: BARWHC3 15:52
PROVIDERS: ATTEND Surgery Plastic and Reconstructive Surgery
DX: E66.01 Morbid (severe) obesity due to excess calories (principal); Z68.36 Body mass index [BMI] 36.0-36.9, adult
CPT/HCPCS: 99211

== ENCOUNTER → 2022-12-02 | Outpatient (CLI) | payer BC | END | disposition home or self-care (01) | LOC: LABWHC1 11:25 | PROVIDERS: ATTEND Surgery Plastic and Reconstructive Surgery | DX: E66.01 Morbid (severe) obesity due to excess calories (principal); E89.1 Postprocedural hypoinsulinemia; D50.8 Other iron deficiency anemias; K91.2 Postsurgical malabsorption, not elsewhere classified; E44.0 Moderate protein-calorie malnutrition; E44.1 Mild protein-calorie malnutrition; E45 Retarded development following protein-calorie malnutrition; E46 Unspecified protein-calorie malnutrition; E55.9 Vitamin D deficiency, unspecified; K74.1 Hepatic sclerosis; N19 Unspecified kidney failure; T56.894A Toxic effect of other metals, undetermined, initial encounter; K50.90 Crohn's disease, unspecified, without complications | CPT/HCPCS: 36415; 83036 ==

== ENCOUNTER → 2023-12-02 | Outpatient (CLI) | payer BC ==
[2023-12-02 16:53] LABS: INR 0.9 (<1.2); Prothrombin Time 10.3 sec (10.0-12.5)
[2023-12-02 16:58] VITALS: BP 116/84; PULSE 66; RESP 16; TEMP 97.9; BMI 35.0
--- NOTE | 2023-12-02 17:48 | P.BASOAP ---
Subjective Progress Note Date: 12/02/23 DATE: 12/02/23 CHIEF COMPLAINT: Status post sleeve gastrectomy HISTORY OF PRESENT ILLNESS: Mamie Kebede is a 53-year-old female status post sleeve gastrectomy 12/09/2021. She is 2 years postop. Her highest weight is 235 pounds. Her lowest is 189 pounds. She has worsening thyroid problems. She is not tracking her food. She denies gastroesophageal reflux disease. She denies dysphagia. Denies abdominal pain. Fluid intake is 92 ounces. She has no goal weight loss but just being healthy. She presents with new worsening thyroid disorder. At height of 5 feet 3 inches, her ideal body weight is 140 pounds. Her highest weight is 235 pounds, body mass index of 41.7. She comes in 198 pounds from 221 pounds. She has lost 23 pounds in 2 months. Her body mass index is 35.1. She is 58 pounds overweight. Lifetime weight loss of 37 pounds. Lifetime percent excess weight loss 39%. PAST MEDICAL HISTORY: 1. Morbid obesity due to excess calories 2. Body mass index of 41.7, initial 3. Osteoarthritis of the knees. 4. Osteoarthritis of the lower back. 5. Thyroid disorder 6. Parathyroid adenoma 7. Osteoarthritis of the hips, bilateral 8. Sleep apnea 9. Migraines PAST SURGICAL HISTORY: 1. Breast biopsy 2. section 3. Cholecystectomy 4. Hysterectomy 5. Colonoscopy 6. Esophagogastroduodenoscopy 7. Sleeve gastrectomy HOME MEDICATIONS: Home Medications Medication Instructions Recorded Confirmed Loratadine [Claritin] 10 mg PO DAILY 03/13/21 01/13/24 Biotin 5 mg PO DAILY PRN 10/22/22 01/13/24 Ergocalciferol [Vitamin D2 (1250 1,250 mcg PO WEEKLY 10/22/22 01/13/24 Mcg = 61816 Iu)] Multivitamins, Thera [Multivitamin 1 tab PO DAILY 10/22/22 01/13/24 (formulary)] Ferrous Sulfate [Iron] 325 mg PO DAILY 01/13/24 01/13/24 ALLERGIES: Allergies Allergy/AdvReac Type Severity Reaction Status Date / Time No Known Allergies Allergy Verified 01/13/24 13:21 SOCIAL HISTORY: Past tobacco use. FAMILY HISTORY: No family history of ulcerative colitis disease or Crohn's disease. Family history of morbid obesity. No lupus in the family. No reports of stomach or esophageal cancer. Her father had pancreatic cancer. REVIEW OF ORGAN SYSTEMS: CONSTITUTIONAL: At height of 5 feet 3 inches, her ideal body weight is 140 pounds. Her highest weight is 235 pounds, body mass index of 41.7. HEENT: Denies any active troubles with vision or hearing. ENDOCRINE: Denies diabetes. No hypothyroidism. CARDIOVASCULAR: Denies past reports of palpitations or heart attacks or chest pain. RESPIRATORY: Has seasonal allergies. She has somnolence daytime. She has not had a sleep study. GASTROINTESTINAL: Denies any bright red blood per rectum. No diarrhea. No constipation. GENITOURINARY: Denies bladder urgency. No recent blood in urine MUSCULOSKELETAL: Has lower back pain and joint pain. Has osteoarthritis of the knees. NEURO: Migraines. No seizure disorders. PSYCH: Denies depression. No suicidal ideation. RHEUMATOLOGIC: No lupus. No rheumatoid arthritis. HEMATOLOGIC: Denies any abnormal bleeding or bruising. SKIN: No rash. No skin cancer. PHYSICAL EXAM: VITAL SIGNS: Height 5 foot 3 inches, weight 198 pounds. BMI 35.1 Vital Signs Temp 97.9 F 12/02/23 16:56 Pulse 66 12/02/23 16:56 Resp 16 12/02/23 16:56 BP 116/84 12/02/23 16:56 Pulse Ox FiO2 GENERAL: Well-developed in no acute distress. HEENT: No scleral icterus. Extraocular movements grossly intact. Hears conversational speech. No nasal drainage. NECK: Supple without lymphadenopathy. CHEST: Nonlabored respirations with equal bilateral excursions. CARDIOVASCULAR: Regular rate and regular rhythm. Distal 2+ pulses. ABDOMEN: Obese, soft, nontender, nondistended. MUSCULOSKELETAL: No clubbing, cyanosis. NEURO: No focal or lateralizing signs. Cranial nerves 2 through 12 grossly wi thin normal limits. PSYCH: Appropriate affect. Alert and oriented to person, place and time. SKIN: Good skin turgor. Well perfused. ASSESSMENT: 1. Morbid obesity due to excess calories 2. Body mass index of 41.7, initial 3. Osteoarthritis of the knees. 4. Osteoarthritis of the lower back. 5. Thyroid disorder 6. Parathyroid adenoma 7. Osteoarthritis of the hips, bilateral 8. Sleep apnea 9. Migraines 10. Status post sleeve gastrectomy PLAN: 1. Recommend full bariatric labs. 2. Recommend ultrasound of the neck regarding her thyroid 3. Recommend food diary journal for tracking of foods and weight gain. Objective - Vital Signs Vital signs: Vital Signs Temp 97.9 F 12/02/23 16:56 Pulse 66 12/02/23 16:56 Resp 16 12/02/23 16:56 BP 116/84 12/02/23 16:56 Pulse Ox FiO2 Intake & Output 12/01/23 12/02/23 12/02/23 18:59 06:59 18:59 Weight 89.811 kg - Labs CBC & Chem 7: 12/02/23 16:18 12/02/23 16:18 Assessment/Plan Plan: Date: 12/02/23 Initial Weight: 102.285 kg Initial BMI: 39.9 Current Weight: 89.811 kg Current BMI: 35.0 Type of Surgery: Total Volume in Band: Previous Volume: Volume Removed: Volume Added: Band Size:
[2023-12-03 03:27] LABS: HCT 46.4 % (37.2-46.3); HGB 15.3 g/dL (12.0-15.0); MCH 28.1 pg (27.0-32.0); MCV 85.3 FL (80.0-97.0); NRBC Per 100 WBC 0 X 10*3/uL (0.00-0.01); Platelet Count 354 X 10*3/uL (140-440); RBC 5.44 X 10*6/uL (4.10-5.20); RDW 12.7 % (11.5-14.5); WBC 8.96 X 10*3/uL (4.50-10.00)
[2023-12-03 04:35] LABS: % Iron Saturation 14.93 (12.00-45.00); ALT 30 U/L (8-44); AST 19 U/L (13-35); Albumin 4.8 g/dL (3.8-4.9); Albumin/Globulin Ratio 1.78 Ratio (1.60-3.17); Alkaline Phosphatase 108 U/L (41-126); BUN/Creat Ratio 19.12 Ratio (12.00-20.00); Blood Urea Nitrogen 15.3 mg/dL (9.0-27.0); Calcium 9.4 mg/dL (8.7-10.3); Carbon Dioxide 20.6 mmol/L (21.6-31.8); Chloride 101 mmol/L (96-109); Chol/HDL Ratio 5.01 Ratio; Globulin 2.7 g/dL (1.6-3.3); Glucose 88 mg/dL (70-110); Iron 60 UG/DL (50-170); Magnesium 2.2 mg/dL (1.5-2.4); Potassium 3.9 mmol/L (3.5-5.5); Sodium 137 mmol/L (135-145); Total Bilirubin 0.5 mg/dL (0.3-1.2); Total Iron Binding Capacity 402 UG/DL (228-460); Total Protein 7.5 g/dL (6.2-8.2); VLDL Calculation 18.32 mg/dL (5.00-40.00)
[2023-12-04 05:32] LABS: Vitamin A 46 ug/dL (38-106)
[2023-12-04 15:18] LABS: Zinc, Serum 83 ug/dL (60-130)
[2023-12-04 15:32] LABS: Vit B1(Thiamine) 52 ug/L (38-122)
[2023-12-06 07:32] LABS: Selenium 142 mcg/L (63-160)
== END ==
LOC: BARWHC3 16:06
PROVIDERS: ATTEND Surgery Plastic and Reconstructive Surgery
DX: Z09 Encounter for follow-up examination after completed treatment for conditions other than malignant neoplasm (principal); E66.01 Morbid (severe) obesity due to excess calories; K90.89 Other intestinal malabsorption; D50.8 Other iron deficiency anemias; E89.1 Postprocedural hypoinsulinemia; E55.9 Vitamin D deficiency, unspecified; K74.1 Hepatic sclerosis; N19 Unspecified kidney failure; T56.894A Toxic effect of other metals, undetermined, initial encounter; K50.90 Crohn's disease, unspecified, without complications; M17.0 Bilateral primary osteoarthritis of knee; M47.816 Spondylosis without myelopathy or radiculopathy, lumbar region; E07.9 Disorder of thyroid, unspecified; D35.1 Benign neoplasm of parathyroid gland; M16.0 Bilateral primary osteoarthritis of hip; G47.30 Sleep apnea, unspecified; G43.909 Migraine, unspecified, not intractable, without status migrainosus; Z98.84 Bariatric surgery status; Z90.3 Acquired absence of stomach [part of]; Z68.35 Body mass index [BMI] 35.0-35.9, adult
CPT/HCPCS: 80053; 80061; 82306; 82525; 82607; 82728; 82746; 83036; 83540; 83550; 83735; 83970; 84100; 84134; 84255; 84425; 84443; 84590; 84630; 85027; 85610; 85730; 99211